=== PATIENT | male | born 1980 | race Caucasian/White ===

== ENCOUNTER 2019-04-08 15:57 | Emergency (ER) | payer OTHER ==
[~2019-04-08] VITALS: Ht 172.7 cm; Wt 54.5 kg
[~2019-04-08 15:57] MED LIST: OLANZAPINE 5 MG TABLET PO ONE
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
[2019-04-08] MEDS ORDERED: LORazepam 1MG TABLET PO ONE (16:30)
[2019-04-08 16:39] LABS: BASOPHILS # (AUTO) 0.05 x10^3/uL (0-0.1); BASOPHILS % (AUTO) 0 % (0-1); EOSINOPHILS # (AUTO) 0.06 x10^3/uL (0-0.4); EOSINOPHILS % (AUTO) 1 % (1-7); LYMPHOCYTES # (AUTO) 2.17 x10^3/uL (1-3.4); LYMPHOCYTES % (AUTO) 16 % (22-44); MD NO; MEAN CORPUSCULAR HEMOGLOBIN 32.1 pg (27.5-34.5); MEAN CORPUSCULAR HGB CONC 33.3 g/dL (33.2-36.2); MEAN CORPUSCULAR VOLUME 96.3 fL (81-97); MEAN PLATELET VOLUME 7.3 fL (7.4-10.4); MONOCYTES # (AUTO) 1.01 x10^3/uL (0.2-0.8); MONOCYTES % (AUTO) 8 % (2-9); NEUTROPHILS # (AUTO) 10.04 x10^3/uL (1.8-6.8); NEUTROPHILS % (AUTO) 75 % (42-75); PLATELET COUNT 436 x10^3/uL (130-400); RED BLOOD COUNT 5.11 x10^6/uL (4.38-5.82); RED CELL DISTRIBUTION WIDTH 13.3 % (9.4-14.8)
[2019-04-08] MEDS ORDERED: LORazepam 1MG TABLET ONE ×2 (16:42→16:57)
[2019-04-08 16:43] LABS: ALANINE AMINOTRANSFERASE 46 U/L (12-78); ALBUMIN 4.1 g/dL (3.4-5.0); ANION GAP 14 mmol/L (5-15); CALCIUM 9.1 mg/dL (8.5-10.1); CHLORIDE 102 mmol/L (98-107); CREATININE 0.87 mg/dL (0.7-1.3); SALICYLATE LEVEL 2.6 mg/dL (2.8-20.0)
[2019-04-08] MEDS ORDERED: OLANZAPINE 5 MG TABLET ONE (16:43)
[2019-04-08 16:45] LABS: ALKALINE PHOSPHATASE 75 U/L (45-117); BILIRUBIN,TOTAL 0.9 mg/dL (0.2-1.0)
--- NOTE | 2019-04-08 16:59 | NUR ---
PATIENT REFUSED THE ATIVAN TABLET IN PACKAGE PROVIDED BECAUSE THE DATE WAS NOT LIGIBLE. STATED HE WOULD TAKE THE ATIVAN IF THE DATE WAS CLEAR. 1 MG ATIVAN TABLET RETURNED AND A NEW TABLET PACKAGE WAS PULLED WITH LIGIBLE DATE.
--- NOTE | 2019-04-08 17:11 | NUR ---
Patient medicated per order, patients friend dropped off a belt, utility tool and knife to patients bedside. Items were secured in patient belonging bag in the ED storage locker. Patient aware. Currently resting in secure room with sitter in line of sight. Labs drawn, pending dinner.
--- NOTE | 2019-04-08 17:58 | NUR ---
Throughput RN: Chart faxed to [facility], [facility], [facility] with confirmation fax received
--- NOTE | 2019-04-08 18:01 | NUR ---
Throughput RN: Chart faxed to [facility] with confirmation fax received.
--- NOTE | 2019-04-08 18:15 | NUR ---
Patient with meal tray Room safe, sitter within line of sight
[2019-04-08 18:22] VITALS: BP 130/68
--- NOTE | 2019-04-08 18:22 | NUR ---
Report given to Peter at [facility]
== END 2019-04-08 18:55 ==
LOC: ED 17:10
DX: F31.9 Bipolar disorder, unspecified (principal); F29 Unspecified psychosis not due to a substance or known physiological condition
CPT/HCPCS: 36415; 80053; 80307; 85025; 99285